=== PATIENT | female | born 1945 | race Two or more races ===

== ENCOUNTER 2021-11-25 10:19 | Outpatient (CLI) | payer MEDICARE | END 2021-11-25 23:59 | disposition home or self-care (01) | LOC: MSC 10:19 | PROVIDERS: ATTEND Internal Medicine | DX: R79.89 Other specified abnormal findings of blood chemistry (principal); I10 Essential (primary) hypertension; E03.9 Hypothyroidism, unspecified; Z79.890 Hormone replacement therapy; Z86.79 Personal history of other diseases of the circulatory system; E78.5 Hyperlipidemia, unspecified; Z86.19 Personal history of other infectious and parasitic diseases; E87.1 Hypo-osmolality and hyponatremia; Z79.899 Other long term (current) drug therapy ==